=== PATIENT | female | born 1940 | race Two or more races ===

== ENCOUNTER 2018-08-03 11:17 | Inpatient (IN) | payer OTHER ==
[~2018-08-03] VITALS: Ht 157.5 cm; Wt 67.6 kg
[2018-08-03] MEDS ORDERED: PLAVIX75 MG (12:18)
[2018-08-03] MEDS ORDERED: ASPIR 8181 MG (12:18)
[2018-08-03] MEDS ORDERED: VERAPAMIL ER180 MG (12:18)
[2018-08-03] MEDS ORDERED: SYNTHROID112 MCG (12:18)
[2018-08-03] MEDS ORDERED: PROTONIX40 MG (12:19)
[2018-08-03] MEDS ORDERED: HYDROCHLOROTHIA25 MG (12:19)
[2018-08-03] MEDS ORDERED: ZANTAC300 MG (12:19)
--- NOTE | 2018-08-03 12:20 | NUR ---
FAMILIAR REFIERE PTE CON TOS PERSISTENTE , CONGESTION
--- NOTE | 2018-08-03 13:39 | NUR ---
EVALUADA POR LA SE ORIENTA PTE SOBRE TRATAMIENTO MEDICO POR LE EXTRAE MUESTRA DE AALIYAH Y SE NENVIAN AL LABORATORIO. SE MANTIENE EN OBSERVACION.
--- NOTE | 2018-08-03 15:28 | NUR ---
PACIENTE ALERTA Y ORIENTADA X3. SE ORIENTA SOBRE XT A RECIBIR Y REFIERE ENTENDER. SE ADMINISTRA MEDICAMENTO MARTA ORDEN MEDICA. IV FLUID PATENTE Y CONSUELO DE EDEMA Y ERITEMA. SE MANTIENE BAJO OBSERVACION POR CAMBIOS SIGNIFICATIVOS EN BUTACA. PACIENTE CONSULTADA CON DR. WERNER RUSH.
[2018-08-09] MEDS ORDERED: XOPENEX0.63 MG/3 IH (09:36)
[2018-08-09] MEDS ORDERED: MEDROLPACK PO (09:36)
== END 2018-08-09 10:09 | disposition home or self-care (01) | DRG 193 ==
LOC: ER 11:17 → MEDJ 18:59 → MEDI 18:59 → SEC-K 20:26 → SURH 08-04 05:57 → SEC-K 08-04 06:27 → MEDJ 08-04 11:42
PROVIDERS: ADMIT Internal Medicine
PROC: BW24ZZZ Computerized Tomography (CT Scan) of Chest and Abdomen (ICD-10-PCS; principal; 2018-08-03)
PROC: 4A033R1 Measurement of Arterial Saturation, Peripheral, Percutaneous Approach (ICD-10-PCS; 2018-08-03)
PROC: 3E0F7GC Introduction of Other Therapeutic Substance into Respiratory Tract, Via Natural or Artificial Opening (ICD-10-PCS; 2018-08-03)
PROC: 8E0ZXY6 Isolation (ICD-10-PCS; 2018-08-03)
PROC: 4A12X4Z Monitoring of Cardiac Electrical Activity, External Approach (ICD-10-PCS; 2018-08-03)
DX: J10.1 Influenza due to other identified influenza virus with other respiratory manifestations (principal); J80 Acute respiratory distress syndrome; J45.31 Mild persistent asthma with (acute) exacerbation; B37.89 Other sites of candidiasis; I25.10 Atherosclerotic heart disease of native coronary artery without angina pectoris; E03.8 Other specified hypothyroidism; K21.9 Gastro-esophageal reflux disease without esophagitis; I10 Essential (primary) hypertension; B95.61 Methicillin susceptible Staphylococcus aureus infection as the cause of diseases classified elsewhere

== ENCOUNTER 2018-08-17 13:59 | Emergency (ER) | payer OTHER ==
[~2018-08-17] VITALS: Ht 162.6 cm; Wt 77.1 kg
[~2018-08-17 13:59] MED LIST: ASPIR 8181 MG; HYDROCHLOROTHIA25 MG; MEDROLPACK PO; PLAVIX75 MG; PROTONIX40 MG; SYNTHROID112 MCG; VERAPAMIL ER180 MG; XOPENEX0.63 MG/3 IH; ZANTAC300 MG
[2018-08-17] MEDS ORDERED: VISTARIL25 MG PO (15:55)
== END 2018-08-17 16:04 | disposition home or self-care (01) ==
LOC: ER 13:59
DX: F06.4 Anxiety disorder due to known physiological condition (principal); I10 Essential (primary) hypertension